=== PATIENT | male | born 1960 | race African-American/Black ===

== ENCOUNTER 2019-03-24 08:30 | Inpatient (IN) | payer MEDICAID ==
[~2019-03-24] VITALS: Ht 185.4 cm; Wt 69.6 kg
[2019-03-24] VITALS (9 sets, daily range): BP systolic 119–158; BP diastolic 67–112
[2019-03-24] MEDS ORDERED: P20 MT (09:17)
[2019-03-24] MEDS ORDERED: ALBU6.7H9 INH (09:17)
[2019-03-24] MEDS ORDERED: LIP40 MT (09:17)
[2019-03-24] MEDS ORDERED: LISI-604 MT (09:17)
[2019-03-24] MEDS ORDERED: ASPI-1158 MT (09:17)
[2019-03-24] MEDS ORDERED: METO25TA6 MT (09:17)
[2019-03-24] MEDS ORDERED: IODIXANOL 320MG/ML 100 ML BOTTLE IV ONE ×2 (09:25→10:31)
[2019-03-24] MEDS ORDERED: LIDOCAINE HCL 1% 20ML VIAL (Pyxis) INJ ONE (09:25)
[2019-03-24 09:36] LABS: HEMATOCRIT 35.7 % (42.0-52.0); HEMOGLOBIN 11.2 g/dL (14.0-18.0); MEAN CORPUSCULAR HEMOGLOBIN 30.1 pg (28.0-32.0); MEAN CORPUSCULAR VOLUME 95.5 fL (80.0-94.0); PLATELET 361 x1000/uL (130-400); RED BLOOD CELL COUNT 3.74 mill/uL (4.7-6.1); RED CELL DISTRIBUTION WIDTH 15.5 % (11.6-14.6)
[2019-03-24 09:44] LABS: PARTIAL THROMBOPLASTIN TIME 34.3 sec (23.4-31.0); PROTHROMBIN TIME 10.7 sec (9.6-11.0)
[2019-03-24] MEDS ORDERED: ASPIRIN/SOD BICARB/CITRIC ACID 324MG TAB EFF ONE (09:47)
[2019-03-24] MEDS ORDERED: HEPARIN SODIUM 1,000 UNIT/1ML VIAL IV ONE ×2 (09:57→10:15)
[2019-03-24 10:00] LABS: CHLORIDE 102 mEq/L (98-107)
[2019-03-24] MEDS ORDERED: MIDAZOLAM HCL 2 MG/2 ML VIAL ONE (10:01)
[2019-03-24] MEDS ORDERED: FENTANYL CITRATE/PF 50MCG/ML 2ML VIAL ONE (10:01)
[2019-03-24] MEDS ORDERED: PHENYLEPHRINE 100MCG/ML 10ML VIAL (CATH LAB) IV ONE (10:15)
[2019-03-24] MEDS ORDERED: NITROGLYCERIN 50MCG/ML 10ML VIAL (CATH LAB) IV ONE (10:15)
[2019-03-24] MEDS ORDERED: IOHEXOL-300 100 ML BOTTLE ONE (10:27)
[2019-03-24] MEDS ORDERED: CLOPIDOGREL 75MG TABLET ONE (11:06)
[2019-03-24] MEDS ORDERED: ATROPINE SULFATE 1MG/10ML SYR IV PRN (11:15)
[2019-03-24] MEDS ORDERED: ACETAMINOPHEN 325MG TABLET PO PRN (11:15)
[2019-03-24] MEDS ORDERED: ONDANSETRON HCL 4MG/2ML INJ IV PRN (11:15)
[2019-03-24] MEDS ORDERED: SODIUM CHLORIDE 0.45% 1,000 ML IV ONE (11:15)
[2019-03-24] MEDS ORDERED: CLOPIDOGREL 75MG TABLET PO ONE (11:15)
[2019-03-24] MEDS: METOPROLOL TARTRATE 25MG TABLET PO SCH (20:45)
[2019-03-24] MEDS ORDERED: ATORVASTATIN CALCIUM 40MG TABLET PO SCH (21:00)
[2019-03-25] VITALS (9 sets, daily range): BP systolic 95–152; BP diastolic 57–100
[2019-03-25] MEDS: METOPROLOL TARTRATE 25MG TABLET PO SCH (08:49)
[2019-03-25] MEDS ORDERED: LISINOPRIL 10MG TABLET PO SCH (09:00)
[2019-03-25] MEDS ORDERED: PREDNISONE 10MG TABLET PO SCH (09:00)
[2019-03-25] MEDS ORDERED: ASPIRIN 325MG TABLET PO SCH (09:00)
[2019-03-25] MEDS ORDERED: CLOPIDOGREL 75MG TABLET PO SCH (09:00)
[2019-03-25 09:38] LABS: HEMOGLOBIN. 10.9 g/dL (14.0-18.0); MEAN CORPUSCULAR VOLUME 95.8 fL (80.0-94.0); PLATELET 341 x1000/uL (130-400); RED BLOOD CELL COUNT 3.65 mill/uL (4.7-6.1); RED CELL DISTRIBUTION WIDTH 15.4 % (11.6-14.6)
[2019-03-25 09:45] LABS: CHLORIDE 99 mEq/L (98-107)
[2019-03-25 11:45] LABS: PLATELET ESTIMATE NORMAL
== END 2019-03-25 15:37 | disposition home or self-care (01) | DRG 175 ==
LOC: CCL 08:30 → 3WST 08:31
PROVIDERS: ADMIT Specialist; ATTEND Specialist
PROC: 4A023N7 Measurement of Cardiac Sampling and Pressure, Left Heart, Percutaneous Approach (ICD-10-PCS; principal; 2019-03-24)
PROC: 027035Z Dilation of Coronary Artery, One Artery with Two Drug-eluting Intraluminal Devices, Percutaneous Approach (ICD-10-PCS; 2019-03-24)
PROC: B2151ZZ Fluoroscopy of Left Heart using Low Osmolar Contrast (ICD-10-PCS; 2019-03-24)
PROC: B2111ZZ Fluoroscopy of Multiple Coronary Arteries using Low Osmolar Contrast (ICD-10-PCS; 2019-03-24)
PROC: B2131ZZ Fluoroscopy of Multiple Coronary Artery Bypass Grafts using Low Osmolar Contrast (ICD-10-PCS; 2019-03-24)
DX: I25.10 Atherosclerotic heart disease of native coronary artery without angina pectoris (principal); Z99.81 Dependence on supplemental oxygen; E78.00 Pure hypercholesterolemia, unspecified; F17.210 Nicotine dependence, cigarettes, uncomplicated; I10 Essential (primary) hypertension; J44.9 Chronic obstructive pulmonary disease, unspecified; Z95.1 Presence of aortocoronary bypass graft; Z88.0 Allergy status to penicillin; Z79.899 Other long term (current) drug therapy
CPT/HCPCS: 36415; 80048; 85027; 85347; 92928; 93005; 93458; C1725; C1769; C1874; C1887; C1893; J1644; J2250; J2370; J3010; J3490; J7512; Q9967